=== PATIENT | female | born 1980 | race Caucasian/White ===

== ENCOUNTER 2021-03-26 17:25 | Emergency (ER) | payer OTHER ==
[2021-03-26 17:47] VITALS: BP 107/61; PULSE 110; TEMP 98.2; BMI 30.2
[2021-03-26] MEDS ORDERED: KETOROLAC TROMETHAMINE 30 MG/1 ML VIAL IM ONE (18:53)
[2021-03-26] MEDS ORDERED: KETOROLAC TROMETHAMINE 30 MG/1 ML VIAL ONE (18:55)
== END 2021-03-26 19:36 | disposition home or self-care (01) ==
LOC: JERFT 17:25
PROC: 3E023GC Introduction of Other Therapeutic Substance into Muscle, Percutaneous Approach (ICD-10-PCS; principal; 2021-03-26)
DX: K08.89 Other specified disorders of teeth and supporting structures (principal); L73.1 Pseudofolliculitis barbae
CPT/HCPCS: 99284-25

== ENCOUNTER 2021-04-05 19:34 | Emergency (ER) | payer OTHER ==
[2021-04-05 19:48] VITALS: BP 120/75; PULSE 107; TEMP 101; BMI 70.8
[2021-04-05] MEDS ORDERED: IBUPROFEN 600 MG TABLET (FP) PO ONE ×2 (21:06)
[2021-04-05] MEDS ORDERED: SODIUM CHLORIDE 1,000 ML IV STA (21:06)
[2021-04-07 23:07] LABS: SARS-CoV-2 NAA Detected (Not Detected)
== END 2021-04-05 23:47 | disposition home or self-care (01) ==
LOC: JER 19:34
PROC: 3E0337Z Introduction of Electrolytic and Water Balance Substance into Peripheral Vein, Percutaneous Approach (ICD-10-PCS; principal; 2021-04-05)
DX: J06.9 Acute upper respiratory infection, unspecified (principal)
CPT/HCPCS: 71046-TC-FY; 87070; 87077; 87804; 99284-25; C9803; U0003; U0005